=== PATIENT | male | born 1985 | race Caucasian/White ===

== ENCOUNTER 2021-11-29 08:56 | Emergency (ER) | payer OTHER ==
[~2021-11-29] VITALS: Ht 167.6 cm; Wt 61.7 kg
[2021-11-29] MEDS ORDERED: AMOCLA875 PO (09:42)
[2021-11-29] MEDS ORDERED: NAPR500 PO (09:42)
== END 2021-11-29 10:22 | disposition home or self-care (01) ==
LOC: ER 08:56
DX: K08.89 Other specified disorders of teeth and supporting structures (principal); I10 Essential (primary) hypertension; F17.210 Nicotine dependence, cigarettes, uncomplicated
CPT/HCPCS: 96372; 99282-25; A9270; J1885

== ENCOUNTER 2021-12-13 19:21 | Emergency (ER) | payer OTHER ==
[~2021-12-13] VITALS: Ht 167.6 cm; Wt 63.5 kg
[~2021-12-13 19:21] MED LIST: AMOCLA875 PO; NAPR500 PO
[2021-12-13 20:24] LABS: BASOPHILS ABSOLUTE AUTO 0.11 K/mm3 (0.00-0.23); BASOPHILS PERCENT AUTO 1 % (0-2); EOSINOPHILS ABSOLUTE AUTO 0.23 K/mm3 (0.00-0.68); EOSINOPHILS PERCENT AUTO 3 % (0-6); Hemoglobin 15.3 g/dL (13.5-17.5); IMMATURE GRAN ABSOLUTE AUTO 0.04 K/mm3 (0.00-0.10); IMMATURE GRAN PERCENT AUTO 1 % (0-1); LYMPHOCYTES ABSOLUTE AUTO 3.63 K/mm3 (0.84-5.20); LYMPHOCYTES PERCENT AUTO 43 % (21-46); MONOCYTES ABSOLUTE AUTO 0.78 K/mm3 (0.16-1.47); MONOCYTES PERCENT AUTO 9 % (4-13); Mean Corpuscular HGB 29.5 pg (26.0-34.0); Mean Corpuscular Volume 87 fL (80-100); Mean Platelet Volume 10.2 fL (9.1-12.4); NEUTROPHILS ABSOLUTE AUTO 3.76 K/mm3 (1.96-9.15); NEUTROPHILS PERCENT AUTO 44 % (41-73); Platelet Count 329 K/mm3 (150-400); RDW Coefficient Variation 13.8 % (11.7-14.2); RDW Standard Deviation 44.4 fL (35.1-46.3); Red Blood Cell Count 5.18 M/mm3 (4.30-5.90); White Blood Cell Count 8.55 K/mm3 (4.00-11.30)
[2021-12-13 20:47] LABS: Alanine Aminotransfer (ALT/SGP 60 U/L (12-78); Albumin, Blood 3.3 g/dL (3.4-5.0); Albumin/Globulin Ratio 0.8 (0.8-1.8); Alk Phos 122 U/L (50-136); Anion Gap 5 mmol/L (6-16); Aspartate Aminotrans (AST/SGOT 59 U/L (12-37); Bilirubin, Total 0.3 mg/dL (0.1-1.0); Blood Urea Nitrogen 14 mg/dL (8-24); Bun/Creatinine Ratio 19.1 (12.0-20.0); CO2, Blood 29 mmol/L (21-32); Calcium, Blood 8.8 mg/dL (8.5-10.1); Chloride, Blood 107 mmol/L (98-108); Creatinine, Blood 0.73 mg/dL (0.60-1.20); Globulin, Blood 4.3 g/dL (2.2-4.0); Glomerular Filtration Rate >60 (60-); Glucose, Blood 112 mg/dL (70-99); Potassium, Blood 3.6 mmol/L (3.5-5.5); Sodium, Blood 141 mmol/L (136-145); Total Protein, Blood 7.6 g/dL (6.4-8.2)
[2021-12-13] MEDS ORDERED: Toprol Xl25 MG PO (23:38)
== END 2021-12-13 23:57 | disposition home or self-care (01) ==
LOC: ER 19:21
PROVIDERS: Physician Assistant
DX: I10 Essential (primary) hypertension (principal); R51.9 Headache, unspecified; F19.10 Other psychoactive substance abuse, uncomplicated; F17.210 Nicotine dependence, cigarettes, uncomplicated
CPT/HCPCS: 36415; 71046; 80053; 83690; 83880; 84484; 85025; A9270; J0360

== ENCOUNTER 2022-02-26 13:31 | Emergency (ER) | payer OTHER ==
[~2022-02-26] VITALS: Ht 167.6 cm; Wt 59.0 kg
[~2022-02-26 13:31] MED LIST changes: +Toprol Xl25 MG PO
[2022-02-26] MEDS ORDERED: ALEVAZOL56.7 G1 TOP (14:57)
[2022-02-26] MEDS ORDERED: Monodox100 MG PO (14:57)
[2022-04-09] MEDS ORDERED: Toprol Xl25 MG PO (20:51)
[2022-04-21] MEDS ORDERED: IBUP400 PO (09:26)
[2022-04-21] MEDS ORDERED: SULTRIDS PO (09:26)
[2022-04-21] MEDS ORDERED: ACET500 PO (09:26)
== END 2022-02-26 15:12 | disposition home or self-care (01) ==
LOC: ER 13:31
DX: S61.211A Laceration without foreign body of left index finger without damage to nail, initial encounter (principal); L25.9 Unspecified contact dermatitis, unspecified cause; R30.0 Dysuria; I10 Essential (primary) hypertension; F17.210 Nicotine dependence, cigarettes, uncomplicated; Z23 Encounter for immunization; Z79.899 Other long term (current) drug therapy; W45.8XXA Other foreign body or object entering through skin, initial encounter
CPT/HCPCS: 12001; 90471; 90714; 96372; 96374; 99282-25; J0696; J3301

== ENCOUNTER 2022-06-01 06:55 | Emergency (ER) | payer OTHER ==
[~2022-06-01] VITALS: Ht 167.6 cm; Wt 63.5 kg
[~2022-06-01 06:55] MED LIST changes: +ACET500 PO; +ALEVAZOL56.7 G1 TOP; +IBUP400 PO; +Monodox100 MG PO; +SULTRIDS PO
== END 2022-06-01 09:27 | disposition home or self-care (01) ==
LOC: ER 06:55
DX: S00.03XA Contusion of scalp, initial encounter (principal); S50.02XA Contusion of left elbow, initial encounter; S50.12XA Contusion of left forearm, initial encounter; S60.011A Contusion of right thumb without damage to nail, initial encounter; F17.210 Nicotine dependence, cigarettes, uncomplicated; V29.91XA Electric (assisted) bicycle rider (driver) (passenger) injured in unspecified traffic accident, initial encounter; Y92.828 Other wilderness area as the place of occurrence of the external cause
CPT/HCPCS: 70450; 73080; 73130; 73502; 96374; 99285-25; A9270; J1885

== ENCOUNTER 2022-10-05 15:28 | Emergency (ER) | payer OTHER ==
[~2022-10-05] VITALS: Ht 167.6 cm; Wt 63.5 kg
== END 2022-10-05 16:07 | disposition home or self-care (01) ==
LOC: ER 15:28
DX: I10 Essential (primary) hypertension (principal); F15.90 Other stimulant use, unspecified, uncomplicated; R51.9 Headache, unspecified; F17.210 Nicotine dependence, cigarettes, uncomplicated
CPT/HCPCS: 96372; 99283-25; J1885

== ENCOUNTER 2022-10-24 15:52 | Observation (INO) | payer OTHER ==
[~2022-10-24] VITALS: Ht 167.6 cm; Wt 67.0 kg
[2022-10-24 19:38] LABS: Source, Urine Clean Catch
[2022-10-24 19:51] LABS: Appearance, Urine Hazy (Clear); Bilirubin, Urine Neg (Neg); Blood, Urine Neg (Neg); Color, Urine Yellow (P-Yellow); Glucose Qualitative, Urine Neg (Neg); Ketones, Urine Neg (Neg); Leukocyte Esterase, Urine 1+ (Neg); Nitrite, Urine Pos (Neg); Protein, Urine 1+ (Neg); Urobilinogen, Urine NORM (Normal)
[2022-10-24 20:02] LABS: Bacteria Many /hpf; Red Blood Cells, Urine 0-2 /hpf (0-2); Squamous Epithelial Cells Rare /hpf (Few); White Blood Cells, Urine 25-50 /hpf (0-5)
[2022-10-24 20:28] LABS: BASOPHILS ABSOLUTE AUTO 0.12 K/mm3 (0.00-0.23); BASOPHILS PERCENT AUTO 1 % (0-2); EOSINOPHILS ABSOLUTE AUTO 0.26 K/mm3 (0.00-0.68); EOSINOPHILS PERCENT AUTO 3 % (0-6); Hematocrit 45.1 % (37.0-53.0); Hemoglobin 15.2 g/dL (13.5-17.5); IMMATURE GRAN ABSOLUTE AUTO 0.03 K/mm3 (0.00-0.10); IMMATURE GRAN PERCENT AUTO 0 % (0-1); LYMPHOCYTES ABSOLUTE AUTO 3.71 K/mm3 (0.84-5.20); LYMPHOCYTES PERCENT AUTO 44 % (21-46); MONOCYTES ABSOLUTE AUTO 0.72 K/mm3 (0.16-1.47); MONOCYTES PERCENT AUTO 9 % (4-13); Mean Corpuscular HGB 28.6 pg (26.0-34.0); Mean Corpuscular HGB Conc 33.7 g/dL (31.5-36.5); Mean Corpuscular Volume 85 fL (80-100); Mean Platelet Volume 10.7 fL (9.1-12.4); NEUTROPHILS ABSOLUTE AUTO 3.66 K/mm3 (1.96-9.15); NEUTROPHILS PERCENT AUTO 43 % (41-73); Platelet Count 258 K/mm3 (150-400); RDW Coefficient Variation 14.7 % (11.7-14.2); RDW Standard Deviation 45.7 fL (35.1-46.3); Red Blood Cell Count 5.32 M/mm3 (4.30-5.90)
[2022-10-24 20:50] LABS: Bun/Creatinine Ratio 16.2 (12.0-20.0); Calcium, Blood 9.2 mg/dL (8.5-10.1); Creatinine, Blood 0.8 mg/dL (0.60-1.20); Potassium, Blood 3.8 mmol/L (3.5-5.5)
[2022-10-24 22:56] LABS: U Amphetamine Screen Not Detected; U Barbituate Screen Not Detected; U Benzodiazapine Screen Not Detected; U Buprenorphine Screen Not Detected; U Cannabinoids Screen Not Detected; U Cocaine Screen Not Detected; U Methadone Screen Not Detected; U Methamphetamine Screen DETECTED; U Opiates Screen Not Detected; U Oxycodone Screen Not Detected; U Phencyclidine Screen Not Detected
[2022-10-24 22:57] LABS: U Propoxyphene Screen Not Detected
--- NOTE | 2022-10-25 00:45 | NUR ---
ADMIT NOTE HANDOFF RECEIVED FROM MANAGER OF GLOBAL IVETH. PT ARRIVED TO FLOOR VIA GURNEY. PT ORIENTED TO UNIT. CALL BUTTON WITHIN REACH. TELEMETRY IS MONITORING
--- NOTE | 2022-10-25 03:55 | NUR ---
SHIFT SUMMARY ADMITTED FOR PNEUMONIA/SEPSIS. DNR CODE. IV ANTIB RX ARE SCHEDULED. TELEMETRY: AFIB @ 135 BPM. TELEMETRY INFORMED ME THAT SHE SPIKES UP TO 150'S BPM FREQUENTLY. I CALLED HOSPITALIST THIS SHIFT AND RECEIVED ORDER FOR IV LOPRESSOR. THIS WAS EFFECTIVE. NOW SHE IS AFIB @ 97 BPM. ON 5 LPM O2 HERE, ON 2 LPM O2 @ HOME AT BEDTIME. ON REGULAR DIET. PAIN RX GIVEN. TRAZODONE GIVEN FOR INSOMNIA. PLAN IS FOR HOME W/HH WHEN READY FOR DC. ON WARFARIN. CHRONIC BACK AND LEG PAIN.
--- NOTE | 2022-10-25 04:02 | NUR ---
SHIFT SUMMARY ADMITTED THIS SHIFT FOR OBSERVATION, HYPERTENSIVE URGENCY. FULL CODE. TELEMETRY: NSR @ 78 BPM. FOUND TO ALSO HAVE A UTI. IV ANTIB RX ARE SCHEDULED. HE IS A&O X4, INDEPENDENT. CARDIAC DIET. CONTINENT. NO NOSEBLEEDS SO FAR THIS SHIFT. ON RA
[2022-10-25 05:32] LABS: BASOPHILS ABSOLUTE AUTO 0.11 K/mm3 (0.00-0.23); BASOPHILS PERCENT AUTO 1 % (0-2); EOSINOPHILS ABSOLUTE AUTO 0.33 K/mm3 (0.00-0.68); EOSINOPHILS PERCENT AUTO 4 % (0-6); Hematocrit 45.9 % (37.0-53.0); Hemoglobin 15.1 g/dL (13.5-17.5); IMMATURE GRAN ABSOLUTE AUTO 0.02 K/mm3 (0.00-0.10); IMMATURE GRAN PERCENT AUTO 0 % (0-1); LYMPHOCYTES ABSOLUTE AUTO 3.82 K/mm3 (0.84-5.20); LYMPHOCYTES PERCENT AUTO 43 % (21-46); MONOCYTES PERCENT AUTO 9 % (4-13); Mean Corpuscular HGB 28.1 pg (26.0-34.0); Mean Corpuscular HGB Conc 32.9 g/dL (31.5-36.5); Mean Corpuscular Volume 85 fL (80-100); NEUTROPHILS ABSOLUTE AUTO 3.77 K/mm3 (1.96-9.15); NEUTROPHILS PERCENT AUTO 43 % (41-73); Platelet Count 255 K/mm3 (150-400); RDW Coefficient Variation 14.8 % (11.7-14.2); RDW Standard Deviation 46.5 fL (35.1-46.3); Red Blood Cell Count 5.38 M/mm3 (4.30-5.90); White Blood Cell Count 8.85 K/mm3 (4.00-11.30)
[2022-10-25] MEDS ORDERED: Amlodipine-Ben1 EACH PO (12:29)
[2022-10-25] MEDS ORDERED: CIPR250 PO (12:30)
--- NOTE | 2022-10-25 13:22 | NUR ---
DISCHARGE NOTE- PT WAS GIVEN VERBAL AND WRITTEN DISCHARGE INSTRUCTIONS AND ACKNOWLEDGED UNDERSTANDING OF THEM. NO S&S OF DISTRESS NOTED AT THE TIME OF DISCHARGE. IV AND TELE DC'D. PT DECLINED A WC AND WAS ESCCORTED OUT ON FOOT TO THE TAXI MTM ARRANGED. PT AMBULATED AND GOT IN THE TAXI ON HIS OWN WITHOUT DIFFICULTY.
== END 2022-10-25 13:11 | disposition home or self-care (01) ==
LOC: ER 15:52 → MEDS 15:53
PROVIDERS: Physician Assistant; Student in an Organized Health Care Education/Training Program; ADMIT Internal Medicine
DX: I16.0 Hypertensive urgency (principal); I10 Essential (primary) hypertension; N39.0 Urinary tract infection, site not specified; F15.11 Other stimulant abuse, in remission; F17.210 Nicotine dependence, cigarettes, uncomplicated
CPT/HCPCS: 36415; 80048; 81001; 84484; 85025; 87077; 87086; 87186; 93005; 93010; 96374; 99284-25; A9270; G0378; J0696

== ENCOUNTER 2022-12-30 00:53 | Emergency (ER) | payer OTHER ==
[~2022-12-30] VITALS: Ht 167.6 cm; Wt 68.0 kg
[~2022-12-30 00:53] MED LIST changes: +Amlodipine-Ben1 EACH PO; +CIPR250 PO
[2022-12-30] MEDS ORDERED: Amlodipine-Ben1 EAC1 PO ×2 (02:50→03:25)
[2022-12-30] MEDS ORDERED: SULTRIDS PO (03:25)
[2022-12-30] MEDS ORDERED: CEPH500 PO (03:25)
[2022-12-30 03:55] VITALS: BP 205/140
== END 2022-12-30 03:56 | disposition home or self-care (01) ==
LOC: ER 00:53
DX: L03.114 Cellulitis of left upper limb (principal); L02.512 Cutaneous abscess of left hand; I10 Essential (primary) hypertension; Z76.0 Encounter for issue of repeat prescription; F17.210 Nicotine dependence, cigarettes, uncomplicated; Z79.899 Other long term (current) drug therapy
CPT/HCPCS: A9270

== ENCOUNTER 2023-05-05 16:24 | Emergency (ER) | payer OTHER ==
[~2023-05-05] VITALS: Ht 167.6 cm; Wt 68.0 kg
[~2023-05-05 16:24] MED LIST changes: +Amlodipine-Ben1 EAC1 PO; +CEPH500 PO; +Norco 5-325 Ta1 EACH PO
[2023-05-05] MEDS ORDERED: LOTREL 10-20 M1 EACH PO (17:07)
[2023-05-05 17:09] VITALS: BP 154/106
[2023-05-05] MEDS ORDERED: Amlodipine-Ben1 EAC1 PO (17:13)
== END 2023-05-05 17:20 | disposition home or self-care (01) ==
LOC: ER 16:24
DX: I10 Essential (primary) hypertension (principal); Z76.0 Encounter for issue of repeat prescription; F17.210 Nicotine dependence, cigarettes, uncomplicated; Z79.899 Other long term (current) drug therapy
CPT/HCPCS: 99281; A9270

== ENCOUNTER 2023-06-11 20:28 | Emergency (ER) | payer OTHER ==
[~2023-06-11] VITALS: Ht 167.6 cm; Wt 63.5 kg
[~2023-06-11 20:28] MED LIST changes: +LOTREL 10-20 M1 EACH PO
[2023-06-11 20:38] VITALS: BP 139/126
[2023-06-11] MEDS ORDERED: Norvasc5 MG PO (21:18)
== END 2023-06-11 21:30 | disposition home or self-care (01) ==
LOC: ER 20:28
DX: S93.401A Sprain of unspecified ligament of right ankle, initial encounter (principal); X50.1XXA Overexertion from prolonged static or awkward postures, initial encounter; I10 Essential (primary) hypertension; F17.210 Nicotine dependence, cigarettes, uncomplicated; Z79.899 Other long term (current) drug therapy
CPT/HCPCS: 29515; 73610; 99283-25

== ENCOUNTER 2023-10-15 03:28 | Emergency (ER) | payer OTHER ==
[~2023-10-15] VITALS: Ht 167.6 cm; Wt 63.5 kg
[~2023-10-15 03:28] MED LIST changes: +Norvasc5 MG PO
[2023-10-15] MEDS ORDERED: AMLO5 PO (06:24)
[2023-10-15] MEDS ORDERED: AmLODIPine Besylate 5 MG Tab PO ONE (06:25)
[2023-10-15 07:05] VITALS: BP 171/119
== END 2023-10-15 07:07 | disposition home or self-care (01) ==
LOC: ER 03:28
DX: I10 Essential (primary) hypertension (principal); Z76.0 Encounter for issue of repeat prescription; Z59.00 Homelessness unspecified; F17.200 Nicotine dependence, unspecified, uncomplicated; Z79.899 Other long term (current) drug therapy
CPT/HCPCS: A9270

== ENCOUNTER 2024-02-12 20:57 | Emergency (ER) | payer OTHER ==
[~2024-02-12] VITALS: Ht 167.6 cm; Wt 63.5 kg
[~2024-02-12 20:57] MED LIST changes: +AMLO5 PO; +ASPERFLEX1 EACH TOP
[2024-02-12 20:58] VITALS: BP 130/84
[2024-02-12] MEDS ORDERED: Cephalexin Monohydrate 500 MG Cap PO ONE (23:55)
[2024-02-12] MEDS ORDERED: CEPH500 PO (23:56)
== END 2024-02-13 00:09 | disposition home or self-care (01) ==
LOC: ER 20:57
DX: L03.011 Cellulitis of right finger (principal); I10 Essential (primary) hypertension; F17.210 Nicotine dependence, cigarettes, uncomplicated; Z79.899 Other long term (current) drug therapy
CPT/HCPCS: 73130; 99283-25; A9270